=== PATIENT | male | born 1990 | race Caucasian/White ===

== ENCOUNTER 2016-09-23 16:25 | Emergency (ER) | payer OTHER ==
[2016-09-23 16:47] VITALS: RESP 17; TEMP 96.7
[2016-09-23] MEDS ORDERED: DIPH,PERTUS(ACELL)TETVAC-LF 0.5 ML VIAL IM ONE (16:48)
--- NOTE | 2016-09-23 16:53 | ED ---
Head Injury HPI - General Chief complaint: Head Injury Stated complaint: Head Injury Time Seen by Provider: 09/23/16 16:44 Source: patient, RN notes reviewed Mode of arrival: ambulatory Limitations: no limitations - History of Present Illness Initial comments: 26-year-old male presents emergency Department chief complaint head injury, fall. Patient states he went to jump over a chair with a piece of cement board on it. Patient states that he struck the corner of metal bead for drywall states that he has a laceration. Patient does complain of severe headache. Patient denies any neck pain. Patient states he fell directly down onto his buttocks region. Patient is primarily left buttocks pain. Patient states he is able to ambulate. Patient states his last tetanus was 7 years ago. Patient denies any bowel bladder incontinence or retention. Denies abdominal pain. Patient offers no other complaints. - Related Data Home Medications Medication Instructions Recorded Confirmed Penicillin V Potassium [Pen Vee K] 500 mg PO Q6H 09/23/16 09/23/16 Previous Rx's Medication Instructions Recorded Hydrocodone/Acetaminophen [[place] 1 tab PO Q6HR PRN #15 tab 09/23/16 5-325] Ibuprofen [Motrin] 600 mg PO Q8HR PRN #30 tab 09/23/16 Allergies/Adverse reactions: Allergies Allergy/AdvReac Type Severity Reaction Status Date / Time No Known Allergies Allergy Verified 09/23/16 16:59 Review of Systems ROS Statement: Those systems with pertinent positive or pertinent negative responses have been documented in the HPI. ROS Other: All systems not noted in ROS Statement are negative. Past Medical History Past Medical History: No Reported History History of Any Multi-Drug Resistant Organisms: None Reported Past Surgical History: No Surgical Hx Reported Past Psychological History: No Psychological Hx Reported Smoking Status: Current every day smoker Past Alcohol Use History: None Reported Past Drug Use History: None Reported General Exam Limitations: no limitations General appearance: alert, in no apparent distress Head exam: Present: atraumatic, normocephalic. Absent: normal inspection (4 cm laceration on the top of his head) Eye exam: Present: normal appearance, PERRL, EOMI. Absent: scleral icterus, conjunctival injection, periorbital swelling ENT exam: Present: normal exam, normal oropharynx, mucous membranes moist, TM's normal bilaterally, normal external ear exam Neck exam: Present: normal inspection, full ROM. Absent: tenderness, meningismus, lymphadenopathy Respiratory exam: Present: normal lung sounds bilaterally. Absent: respiratory distress, wheezes, rales, rhonchi, stridor Cardiovascular Exam: Present: regular rate, normal rhythm, normal heart sounds. Absent: systolic murmur, diastolic murmur, rubs, gallop, clicks GI/Abdominal exam: Present: soft, normal bowel sounds. Absent: distended, tenderness, guarding, rebound, rigid Extremities exam: Present: normal inspection, full ROM, normal capillary refill. Absent: tenderness, pedal edema, joint swelling, calf tenderness Back exam: Present: full ROM, tenderness (Mild tenderness left buttocks). Absent: paraspinal tenderness, vertebral tenderness Neurological exam: Present: alert, oriented X3, CN II-XII intact, reflexes normal. Absent: motor sensory deficit Skin exam: Present: warm, dry, intact, normal color. Absent: rash Course Vital Signs 09/23/16 16:44 Temperature 96.7 F L Pulse Rate 76 Respiratory 17 Rate Blood Pressure 136/85 O2 Sat by Pulse 100 Oximetry Procedures - Laceration Laceration #1 Consent Obtained: verbal consent Indication: laceration Site: face Size (cm): 4 Description: linear Depth: simple, single layer Anesthetic Used: lidocaine 1%, without epi Anesthesia Technique: local infiltration Amount (mls): 4 Pre-repair: wound explored, irrigated extensively, deep structures intact Type of Sutures: other (Dermal nava) Number of Sutures: 7 (Staple) Patient Tolerated Procedure: well, no complications Medical Decision Making - Medical Decision Making 26-year-old male present emergency department for head injury, fall. Patient has no pelvis fracture. Patient does have some mild concussion type symptoms. Patient laceration was closed with nava. Patient will have them removed in 7 days. Return parameters were discussed. Disposition Clinical Impression: Concussion, Scalp laceration, Contusion, hip Disposition: HOME SELF-CARE Instructions: Concussion (ED) Additional Instructions: Have nava removed in 7 days.Please return to the Emergency Department if symptoms worsen or any other concerns. Prescriptions: Hydrocodone/Acetaminophen [[place] 5-325] 1 tab PO Q6HR PRN #15 tab PRN Reason: Pain Ibuprofen [Motrin] 600 mg PO Q8HR PRN #30 tab PRN Reason: Pain Referrals: Claire Allison MD [Primary Care Provider] - 1-2 days Time of Disposition: 18:05
--- NOTE | 2016-09-23 17:35 | XR ---
EXAMINATION TYPE: XR pelvis AP view DATE OF EXAM: 09/23/2016 5:24 PM COMPARISON: NONE HISTORY: Buttock pain TECHNIQUE: Single view FINDINGS: Pelvic ring is intact. Proximal femurs are intact. Sacroiliac joints appear normal. IMPRESSION: Normal pelvis exam.
--- NOTE | 2016-09-23 18:05 | CT ---
EXAMINATION TYPE: CT brain wo con DATE OF EXAM: 09/23/2016 5:59 PM COMPARISON: NONE HISTORY: Frontal head injury. CT DLP: 1171.00 mGycm Automated exposure control for dose reduction was used. FINDINGS: Ventricles and sulci appear normal. There is no mass effect nor midline shift. There is no sign of in tracranial hemorrhage. The calvarium is intact. There is mild mucosal thickening in the anterior ethm oid air cells. IMPRESSION: Negative unenhanced head CT scan. Minimal ethmoid sinusitis.
[2016-09-23 18:13] VITALS: BP 132/84; PULSE 87
== END 2016-09-23 18:11 | disposition home or self-care (01) ==
LOC: EC 16:25
DX: S01.91XA Laceration without foreign body of unspecified part of head, initial encounter (principal); S06.0X9A Concussion with loss of consciousness of unspecified duration, initial encounter; W22.09XA Striking against other stationary object, initial encounter; F17.200 Nicotine dependence, unspecified, uncomplicated; S70.02XA Contusion of left hip, initial encounter; Z23 Encounter for immunization
CPT/HCPCS: 12002; 70450; 72170; 90471; 90715; 99284

== ENCOUNTER → 2017-12-29 | Outpatient (CLI) | payer BC ==
--- NOTE | 2017-12-29 13:50 | XR ---
EXAMINATION TYPE: XR shoulder complete RT DATE OF EXAM: 12/29/2017 COMPARISON: NONE HISTORY: Pain TECHNIQUE: Three views are submitted. FINDINGS: The osseous structures are intact. There is no acute fracture or dislocation. The AC joint is maint ained. IMPRESSION: 1. No acute process.
== END | disposition home or self-care (01) ==
LOC: RADXRYALE 13:25
PROVIDERS: ATTEND Internal Medicine
DX: M25.511 Pain in right shoulder (principal)